=== PATIENT | female | born 1995 | race Caucasian/White ===

== ENCOUNTER 2020-01-22 12:49 | Emergency (ER) | payer MEDICAID ==
--- NOTE | 2020-01-22 14:06 | EDM.PDOC ---
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 Presented to the ER with a chief complaint of vaginal spotting for the last 3 days. Brownish discharge. No active bright red blood. Denies any trauma or injury. Mild abdominal cramping. Denies any nausea or vomiting. Denies any cough or fever. Denies any chest pain shortness breath. Denies any urinary symptom. 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 ED EXAM - Physical Exam Exam: See Below Exam Limited By: No Limitations General Appearance: Alert, WD/WN, No Apparent Distress Nose: Normal Inspection, Normal Mucosa, No Blood Head: Atraumatic, Normocephalic Neck: Normal Inspection, Supple, Non-Tender, Full Range of Motion Respiratory/Chest: No Respiratory Distress, Lungs Clear, Normal Breath Sounds, No Accessory Muscle Use, Chest Non-Tender Cardiovascular: Normal Peripheral Pulses, Regular Rate, Rhythm, No Edema, No Gallop, No JVD, No Murmur, No Rub GI/Abdominal Exam: Normal Bowel Sounds, Soft, Non-Tender, No Organomegaly, No Distention, No Abnormal Bruit, No Mass, Pelvis Stable (Female) Exam: Normal Bimanual Exam, Normal External Exam, Normal Speculum Exam. No: Adnexal Mass (L), Adnexal Mass (R), Adnexal Tenderness, Cervical Dilatation, Cervical Discharge, Cervical Fluid, Cervical Lesions, Cervix Motion Tenderness, Products of Conception, Tissue Present in Cervix/Vagina, Vaginal Bleeding, Vaginal Discharge, Vaginal Lesions, Vaginal Tears Extremities: Normal Inspection, Normal Range of Motion, Non-Tender, Normal Capillary Refill, No Pedal Edema Neurological: Alert, Oriented, CN II-XII Intact, Normal Cognition, Normal Gait, Normal Reflexes, No Motor/Sensory Deficits Course - Vital Signs Last Recorded V/S: Last Vital Signs Temp 36.4 C 01/22/20 15:04 Pulse 110 H 01/22/20 15:04 Resp 15 01/22/20 15:04 BP 130/94 H 01/22/20 15:04 Pulse Ox 97 01/22/20 15:04 - Orders/Labs/Meds Orders: Active Orders 24 hr Category Date Time Status OB Transvaginal [US] Stat Exams 01/22/20 14:20 Ordered Labs: Laboratory Tests 01/22/20 01/22/20 01/22/20 Range/Units 14:17 14:29 14:29 WBC 10.2 (4.5-11.0) K/uL RBC 4.70 (3.30-5.50) M/uL Hgb 13.1 (12.0-15.0) g/dL Hct 38.9 (36.0-48.0) % MCV 83 (80-98) fL MCH 28 (27-31) pg MCHC 34 (32-36) % Plt Count 294 (150-400) K/uL Neut % (Auto) 77 H (36-66) % Lymph % (Auto) 15 L (24-44) % [place] % (Auto) 8 H (2-6) % Eos % (Auto) 0 L (2-4) % Baso % (Auto) 0 (0-1) % Sodium 137 L (140-148) mmol/L Potassium 3.8 (3.6-5.2) mmol/L Chloride 103 (100-108) mmol/L Carbon Dioxide 26 (21-32) mmol/L Anion Gap 11.8 (5.0-14.0) mmol/L BUN 9 (7-18) mg/dL Creatinine 0.7 (0.6-1.0) mg/dL Est Cr Clr Drug Dosing 112.47 mL/min Estimated GFR (MDRD) > 60 (>60) Glucose 121 H (74-106) mg/dL Calcium 8.9 (8.5-10.1) mg/dL HCG, Quant (0-6) mIU/mL Urine Color Yellow (YELLOW) Urine Appearance Cloudy A (CLEAR) Urine pH 6.0 (5.0-8.0) Ur Specific [place] >= 1.030 (1.008-1.030) Urine Protein Negative (NEGATIVE) mg/dL Urine Glucose (UA) Negative (NEGATIVE) mg/dL Urine Ketones Negative (NEGATIVE) mg/dL Urine Occult Blood Negative (NEGATIVE) Urine Nitrite Negative (NEGATIVE) Urine Bilirubin Negative (NEGATIVE) Urine Urobilinogen 0.2 (0.2-1.0) EU/dL Ur Leukocyte Esterase Negative (NEGATIVE) Urine RBC 0-5 (0-5) Urine WBC 0-5 (0-5) Ur Epithelial Cells Moderate Amorphous Sediment Not seen Urine Bacteria Many Urine Mucus Many [facility] 01/22/20 01/22/20 Range/Units 14:30 14:30 WBC (4.5-11.0) K/uL RBC (3.30-5.50) M/uL Hgb (12.0-15.0) g/dL Hct (36.0-48.0) % MCV (80-98) fL MCH (27-31) pg MCHC (32-36) % Plt Count (150-400) K/uL Neut % (Auto) (36-66) % Lymph % (Auto) (24-44) % [place] % (Auto) (2-6) % Eos % (Auto) (2-4) % Baso % (Auto) (0-1) % Sodium (140-148) mmol/L Potassium (3.6-5.2) mmol/L Chloride (100-108) mmol/L Carbon Dioxide (21-32) mmol/L Anion Gap (5.0-14.0) mmol/L BUN (7-18) mg/dL Creatinine (0.6-1.0) mg/dL Est Cr Clr Drug Dosing mL/min Estimated GFR (MDRD) (>60) Glucose (74-106) mg/dL Calcium (8.5-10.1) mg/dL HCG, Quant 04203 H (0-6) mIU/mL Urine Color (YELLOW) Urine Appearance (CLEAR) Urine pH (5.0-8.0) Ur Specific [place] (1.008-1.030) Urine Protein (NEGATIVE) mg/dL Urine Glucose (UA) (NEGATIVE) mg/dL Urine Ketones (NEGATIVE) mg/dL Urine Occult Blood (NEGATIVE) Urine Nitrite (NEGATIVE) Urine Bilirubin (NEGATIVE) Urine Urobilinogen (0.2-1.0) EU/dL Ur Leukocyte Esterase (NEGATIVE) Urine RBC (0-5) Urine WBC (0-5) Ur Epithelial Cells Amorphous Sediment Urine Bacteria Urine Mucus Blood Type (Referred) A pos Rhogam Indicated No Blood Bank Comment [facility] - Radiology Interpretation Free Text/Narrative:: Patient was seen and examined shortly after arrival. Stable. Lab and imaging reviewed. No significant acute abnormalities. Hemoglobin stable. Hemodynamically stable. Rh+. OB ultrasound shows stable intrauterine . No sign of subchorionic hemorrhage. Bleeding almost resolved. Advised to Rest and stay well-hydrated Nothing in the vagina for at least 1 week after bleeding stopped Close follow-up with PCP in 2 days Come back for any concern or any worsening symptom Patient agrees with the plan. Stable for discharge. Departure - Departure Time of Disposition: 15:25 Disposition: Home, Self-Care 01 Condition: Good Clinical Impression: Threatened in early - Discharge Information Instructions: Vaginal Bleeding During , First Trimester, Threatened Miscarriage Referrals: PCP,None [Primary Care Provider] - Forms: ED Department Discharge Additional Instructions: Rest and stay well-hydrated Nothing in the vagina for at least 1 week after bleeding stopped Close follow-up with PCP in 2 days Come back for any concern or any worsening symptom Sepsis Event Note (ED) - Evaluation Sepsis Screening Result: No Definite Risk - Focused Exam Vital Signs: Vital Signs Temp Pulse Resp BP Pulse Ox 01/22/20 15:04 36.4 C 110 H 15 130/94 H 97 - My Orders Last 24 Hours: My Active Orders 01/22/20 14:20 OB Transvaginal [US] Stat - Assessment/Plan Last 24 Hours: My Active Orders 01/22/20 14:20 OB Transvaginal [US] Stat Plan: Rest and stay well-hydrated Nothing in the vagina for at least 1 week after bleeding stopped Close follow-up with PCP in 2 days Come back for any concern or any worsening symptom
--- NOTE | 2020-01-22 16:25 | CRLUS ---
INDICATION: Vaginal bleeding TECHNIQUE: Ultrasound OB pelvis transvaginal. Real time bagley scale imaging of the pelvis was performed. COMPARISON: None FINDINGS: LMP: 12/19/2019 Additional age by LMP: 4 weeks 6 days Estimated due date by LMP: 09/24/2020 Sonographic imaging demonstrates a single living intrauterine gestation. The embryo demonstrates a regular cardiac rate measuring 172 beats per minute. The embryo`s crown rump length measurement of 1.81 cm corresponds to a gestational age of 8 weeks 3 days with a sonographic due date of . There is a normal appearing yolk sac. There are no gross abnormalities noted within the embryo at this early state of development. The placenta has not yet developed. The gestational sac has a normal appearance and there is no evidence of a perigestational hemorrhage. The amount of fluid within the sac appears appropriate for gestational age. Anechoic areas identified within the brain. The cervix is closed. The myometrium appears normal. The ovaries are of normal size. There are no suspicious fluid collections noted in the cul-de-sac. IMPRESSION: Viable intrauterine . Gestational age calculated at 8 weeks 3 days with a sonographic due date of 08/30/2020. Gestational age by LMP is 4 weeks 6 days. Measurements not consistent with dates. Anechoic areas identified within the brain. Follow-up recommended. Dictated by Sam Hoskins MD @ Jan 22 2020 4:25PM Signed by Dr. Sam Hoskins @ Jan 22 2020 4:25PM
== END 2020-01-22 15:59 | disposition home or self-care (01) ==
LOC: JP.ED 12:49
DX: O20.0 Threatened abortion (principal); Z3A.09 9 weeks gestation of pregnancy
CPT/HCPCS: 36415; 76817; 80048; 81001; 84702; 85025; 99284-25